=== PATIENT | male | born 1970 | race Caucasian/White ===

== ENCOUNTER 2023-06-29 01:46 | Emergency (ER) | payer SELFPAY ==
[~2023-06-29] VITALS: Ht 170.2 cm; Wt 80.0 kg
[2023-06-29 01:52] VITALS: O2SAT 99
[2023-06-29 03:21] LABS: AMMONIA < 17 uMol/L (<32)
[2023-06-29 03:22] LABS: ALANINE AMINOTRANSFERASE 89 IU/L (10-49); ALBUMIN 4.5 g/dL (3.2-4.8); ASPARTATE AMINOTRANSFERASE 70 IU/L (<34); BILIRUBIN TOTAL 0.5 mg/dL (0.1-1.0); CALCIUM 9.2 mg/dL (8.7-10.4); CARBON DIOXIDE 20 mEq/L (21-32); CHLORIDE 100 mEq/L (98-107); CREATININE 0.7 mg/dL (0.6-1.3); ETHANOL BLOOD 271 mg/dL (<10); GLUCOSE 346 mg/dL (70-105); POTASSIUM 3.3 mEq/L (3.5-5.1); PROTEIN TOTAL 7.5 g/dL (6.0-8.3); SODIUM 137 mEq/L (136-145); TROPONIN I HIGH SENSITIVITY 5 ng/L (3.0-53); UREA NITROGEN BLOOD 6 mg/dL (9-23)
[2023-06-29 03:26] LABS: LACTIC ACID 4.3 mmol/L (0.4-2.0)
[2023-06-29 03:27] LABS: BASOPHILS % 0.8 % (0.0-2.0); EOSINOPHILS % 0.9 % (0.0-5.0); HEMATOCRIT. 47.2 % (42.0-52.0); HEMOGLOBIN. 16.2 g/dL (14.0-18.0); LYMPHOCYTES % 32.9 % (20.0-50.0); MEAN CORPUSCULAR HEMOGLOBIN 32.9 pg (28.0-32.0); MEAN CORPUSCULAR HGB CONC 34.3 g/dL (31.0-37.0); MEAN CORPUSCULAR VOLUME 95.8 fL (80.0-94.0); MEAN PLATELET VOLUME 9.5 fl (7.4-10.4); MONOCYTES % 9.4 % (2.0-8.0); PLATELET 139 x1000/uL (130-400); RED BLOOD CELL COUNT 4.92 mill/uL (4.7-6.1); RED CELL DISTRIBUTION WIDTH 13.5 % (11.6-14.6); WHITE BLOOD COUNT 6.4 x1000/uL (4.5-11.0)
[2023-06-29] MEDS: SODIUM CHLORIDE 0.9% 1,000 ML IV ONE ×2 (03:40→04:36)
[2023-06-29] MEDS: ONDANSETRON HCL 4MG/2ML INJ IV STA (03:40)
[2023-06-29 08:41] VITALS: BP 117/75; PULSE 80; RESP 17; TEMP 98.6
== END 2023-06-29 08:42 | disposition home or self-care (01) ==
LOC: ER 01:50
DX: F10.129 Alcohol abuse with intoxication, unspecified (principal); E11.9 Type 2 diabetes mellitus without complications; I10 Essential (primary) hypertension; F19.90 Other psychoactive substance use, unspecified, uncomplicated; Y90.8 Blood alcohol level of 240 mg/100 ml or more
CPT/HCPCS: 80053; 80320; 82140; 83605; 85025; 84484; 36415; 71045; 70450; 93005; 96361; 96374; 99285; J2405; J7030; C1893; G0480